=== PATIENT | female | born 1970 | race Two or more races ===

== ENCOUNTER 2024-10-18 08:05 | Day surgery (SDC) | payer MEDICAID, SELFPAY ==
[2024-10-18] VITALS (10 sets, daily range): BP systolic 107–130; BP diastolic 65–92; PULSE 55–81; RESP 9–21; TEMP 36.2–36.7; O2SAT 90–100; BMI 28.7
[2024-10-18] MEDS: MIDAZOLAM INJ 1 MG/ML VIAL 2 ML (ASD USE ONLY) 2 MG IV (09:55)
[2024-10-18] MEDS: fentaNYL CIT INJ 50 mCg/ML AMP 2ML (ASD USE ONLY) IV (09:57)
[2024-10-18] MEDS: DiphenhydrAMINE INJ 50 MG/ML VIAL 25 MG IV (09:57)
[2024-10-18] MEDS: SIMETHICONE 40 MG/0.6 ML ORAL SYRINGE PO (10:08)
== END 2024-10-18 11:02 | disposition home or self-care (01) ==
PROVIDERS: PCP Physician Assistant; Referring Provider Internal Medicine Gastroenterology; Visit Provider Internal Medicine Gastroenterology
PROC: 0DBE8ZX Excision of Large Intestine, Via Natural or Artificial Opening Endoscopic, Diagnostic (ICD-10-PCS; CPT 45380; principal; 2024-10-18 08:45)
DX: K64.8 Other hemorrhoids (principal); I10 Essential (primary) hypertension
CPT/HCPCS: 45380; 81025; A4217; A4649; J1200; J2250; J3010; A9270

== ENCOUNTER → 2025-08-09 | Outpatient (CLI) | payer MEDICAID, SELFPAY ==
--- NOTE | 2025-08-09 09:00 | XR_ITS ---
Examination: Screening digital mammography, bilateral Computer aided detection 3-D breast Tomosynthesis, bilateral Date and time of exam: August 09, 2025, 0912 hours, compared to mammograms dating to July 19, 2017 Indication: Screening Technique: Nonmagnified MLO, CC views of the breasts to been obtained, reconstructed from 3-D Tomosynthesis images. R2 computer aided detection program utilized for evaluation of suspicious masses and/or abnormal calcifications. 3-D Tomosynthesis images obtained. Findings: Scattered areas of fibroglandular density. Grouped microcalcifications 12 o'clock position left breast Breast biopsy marker upper outer left breast Impression: BI-RADS Category 0: Incomplete: Need additional imaging evaluation Recommend magnification spot compression views of calcifications 12 o'clock position left breast as well as bilateral breast sonography to complete the work-up
== END | disposition home or self-care (01) ==
DX: Z12.31 Encounter for screening mammogram for malignant neoplasm of breast (principal); R92.8 Other abnormal and inconclusive findings on diagnostic imaging of breast; R92.1 Mammographic calcification found on diagnostic imaging of breast
CPT/HCPCS: 77063; 77067